=== PATIENT | female | born 1990 | race Two or more races ===

== ENCOUNTER 2019-02-11 15:55 | Emergency (ER) | payer MEDICAID ==
[~2019-02-11] VITALS: Ht 160 cm; Wt 63.5 kg
[~2019-02-11 15:55] MED LIST: CIPROFLOXACIN500 M2 ORAL; IBUPROFEN600 MG ORAL; NKM; NORCO 5-325 TA1 EACH ORAL; ZOFRAN ODT4 MG ORAL
--- NOTE | 2019-02-11 16:08 | NUR ---
ED Nurse Note: Pt came into the ER w/ complaints of dysuria x3 days. Pt is denying of discharge. Pt has a hx of UTI. Pt is complaining of 6/10 pain in the area. Non radiating. Pt is A+ O x4. AMbulatory. Skin warm to touch.
[2019-02-11 16:10] VITALS: BP 108/67
[2019-02-11] MEDS ORDERED: Phenazopyridine 200mg tab ORAL ONE (16:15)
[2019-02-11 16:31] LABS: APPEARANCE,URINE CLEAR; BILIRUBIN, URINE NEGATIVE (NEGATIVE); COLOR,URINE PALE YELLOW; GLUCOSE, URINE (UA) NEGATIVE (NEGATIVE); KETONES,URINE NEGATIVE (NEGATIVE); LEUKOCYTE ESTERASE ,URINE 1+ (NEGATIVE); NITRITE,URINE NEGATIVE (NEGATIVE); PH,URINE 8 (4.5-8.0); PROTEIN,URINE 1+ (NEGATIVE); UROBILINOGEN,URINE NORMAL MG/DL (0.0-1.0)
--- NOTE | 2019-02-11 17:04 | Emergency Room Report ---
History of Present Illness General Chief Complaint: Female Urogenital Problems Source: Patient Present Illness HPI 28-year-old female presents to the emergency department complaining of 6 out of 10 in severity dysuria along with urinary urgency 4 days. Patient denies urinary frequency or hematuria. Patient denies vaginal rash/lesions or discharge. Patient denies suspicion of she states that she just had D &C performed December 30. That she has not had any complications no fevers no chills no recent travel no constipation, diarrhea or abdominal pain/tenderness. Allergies: Coded Allergies: No Known Allergies (Unverified , 11/21/13) Patient History Past Medical History: see triage record Past Surgical History: none Pertinent Family History: none Last Menstrual Period: last week Now: No Reviewed Nursing Documentation: PMH: Agreed; PSxH: Agreed Nursing Documentation-PMH Past Medical History: No History, Except For Review of Systems All Other Systems: negative except mentioned in HPI Physical Exam Vital Signs Date Time Temp Pulse Resp B/P (MAP) Pulse Ox O2 Delivery O2 Flow Rate FiO2 02/11/19 16:01 97.7 80 20 98 Room Air 02/11/19 16:10 108/67 Sp02 EP Interpretation: reviewed, normal General Appearance: no apparent distress, alert, GCS 15, non-toxic Head: normocephalic, atraumatic Eyes: bilateral eye normal inspection, bilateral eye PERRL ENT: hearing grossly normal, normal voice Neck: full range of motion Respiratory: lungs clear, normal breath sounds, speaking full sentences Cardiovascular #1: regular rate, rhythm Gastrointestinal: normal bowel sounds, non tender, soft Genitourinary: normal inspection, no CVA tenderness Musculoskeletal: gait/station normal, normal range of motion, non-tender Neurologic: alert, oriented x3, responsive, motor strength/tone normal, sensory intact, speech normal, grossly normal Psychiatric: judgement/insight normal Skin: normal color, no rash, warm/dry, well hydrated Medical Decision Making PA Attestation Dr. Cason is my supervising Physician whom patient management has been discussed with. Diagnostic Impression: Primary Impression: uti ER Course 28-year-old female presents to the emergency department complaining of 6 out of 10 in severity dysuria along with urinary urgency 4 days. Patient denies urinary frequency or hematuria. Patient denies vaginal rash/lesions or discharge. Patient denies suspicion of she states that she just had D &C performed December 30. That she has not had any complications no fevers no chills no recent travel no constipation, diarrhea or abdominal pain/tenderness. Ddx considered but are not limited to UTi , Pyelo, STI, Stone, Cystitis Vital signs: are WNL, pt. is afebrile H&PE are most consistent with UTI ORDERS - UA labs are attached -- elevation in inflammatory markers with presence of some few bacteria will treat due to inflammatory marker elevation and clinical symptoms. ED INTERVENTIONS: -Pyridium DISCHARGE: At this time pt. is stable for d/c to home. Will provide printed patient care instructions, and any necessary prescriptions. Care plan and follow up instructions have been discussed with the patient prior to discharge. Labs Test 02/11/19 16:00 Urine Color Pale yellow Urine Appearance Clear Urine pH 8 (4.5-8.0) Urine Specific [place] 1.015 (1.005-1.035) Urine Protein 1+ (NEGATIVE) Urine Glucose (UA) Negative (NEGATIVE) Urine Ketones Negative (NEGATIVE) Urine Blood 1+ (NEGATIVE) Urine Nitrite Negative (NEGATIVE) Urine Bilirubin Negative (NEGATIVE) Urine Urobilinogen Normal MG/DL (0.0-1.0) Urine Leukocyte Esterase 1+ (NEGATIVE) Urine RBC 0-2 /HPF (0 - 2) Urine WBC 10-15 /HPF (0 - 2) Urine Squamous Epithelial Cells Few /LPF (NONE/OCC) Urine Bacteria Few /HPF (NONE) Urine HCG, Qualitative Negative (NEGATIVE) Last Vital Signs Date Time Temp Pulse Resp B/P (MAP) Pulse Ox O2 Delivery O2 Flow Rate FiO2 02/11/19 16:10 97.8 68 18 108/67 96 Room Air Status: improved Disposition: HOME, SELF-CARE Condition: Stable Referrals: [facility],REFERRING (PCP) Patient Instructions: Urinary Tract Infection Additional Instructions: Take medications as directed. Pyridium will cause your urine to change color (Red/[place]), this is a normal side effect of the medication. Follow up with a Primary Care Provider in 3-5 days, even if your symptoms have resolved. --Please review list of primary care clinics, if you do not already have a primary care provider Return sooner to ED if new symptoms occur, or current symptoms become worse. - Please note that this Emergency Department Report was dictated using Dragon construction scheduler technology software, occasionally this can lead to erroneous entry secondary to interpretation by the dictation equipment. Margo Holder February 11, 2019 17:04
[2019-02-11] MEDS ORDERED: PHENAZOPYRIDIN100 MG ORAL (17:05)
[2019-02-11] MEDS ORDERED: NITROFURANTOIN100 M2 ORAL (17:05)
[2019-02-11 17:16] VITALS: BP 105/68
--- NOTE | 2019-02-11 17:17 | NUR ---
ER DISCHARGE NOTE: Patient is cleared to be discharged per ERMD, pt is aox4, on room air, with stable vital signs. pt was given dc and prescription instructions, pt was able to verbalize understanding, pt id band removed without complications. pt is able to ambulate with steady gait. pt took all belongings.
== END 2019-02-11 17:17 | disposition home or self-care (01) ==
LOC: EMR 16:28
DX: N39.0 Urinary tract infection, site not specified (principal)
CPT/HCPCS: 81003; 81025; 87086; 99283

== ENCOUNTER 2019-04-03 10:01 | Emergency (ER) | payer MEDICAID ==
[~2019-04-03] VITALS: Ht 160 cm; Wt 65.8 kg
[~2019-04-03 10:01] MED LIST changes: +NITROFURANTOIN100 M2 ORAL; +PHENAZOPYRIDIN100 MG ORAL
--- NOTE | 2019-04-03 10:30 | NUR ---
ED Nurse Note: Patient presents to ER due sudden, stabbing chest pain @0300 today with left facial swelling with tenderness. Patient woke up due to pain. Reports no CP, N/V or SOB at this time. Patient appears anxious. Reasurred patient. Reports no travle hx or taking any meds at this time.
--- NOTE | 2019-04-03 11:10 | NUR ---
ED Nurse Note: Received patient in bed 9. pt aao x4 and ambulatory. 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 vss as documented. IV HL made in Rt AC 20 G.
--- NOTE | 2019-04-03 11:21 | NUR ---
ED Nurse Note: chest x-ray at bedside.
[2019-04-03 11:27] VITALS: BP 126/51
[2019-04-03 11:27] LABS: BASOPHILS % (AUTO) 0.7 % (0.0-2.0); EOSINOPHILS % (AUTO) 0.8 % (0.0-3.0); HEMATOCRIT 39.1 % (37.0-47.0); HEMOGLOBIN 13.2 G/DL (12.0-16.0); LYMPHOCYTES % (AUTO) 18.1 % (20.0-45.0); MEAN CORPUSCULAR VOLUME 90 FL (80-99); MONOCYTES % (AUTO) 7.4 % (1.0-10.0); PLATELET COUNT 251 K/UL (150-450); RED BLOOD COUNT 4.34 M/UL (4.20-5.40); RED CELL DISTRIBUTION WIDTH 10.8 % (11.6-14.8); WHITE BLOOD COUNT 8.1 K/UL (4.8-10.8)
[2019-04-03 11:33] LABS: ANION GAP 9 mmol/L (5-15); BLOOD UREA NITROGEN 12 mg/dL (7-18); CALCIUM 9.4 MG/DL (8.5-10.1); CARBON DIOXIDE 28 MMOL/L (21-32); CHLORIDE 106 MMOL/L (98-107); CREATININE 0.8 MG/DL (0.55-1.30); POTASSIUM 4.5 MMOL/L (3.5-5.1); SODIUM 143 MMOL/L (136-145)
[2019-04-03 11:46] LABS: ALANINE AMINOTRANSFERASE 24 U/L (12-78); ALBUMIN/GLOBULIN RATIO 1.1 (1.0-2.7); ALKALINE PHOSPHATASE 52 U/L (46-116); ASPARTATE AMINO TRANSFERASE 16 U/L (15-37); BILIRUBIN,TOTAL 0.5 MG/DL (0.2-1.0); CKMB 0.7 NG/ML (0.0-3.6); CREATINE KINASE 93 U/L (26-308)
[2019-04-03] MEDS ORDERED: Isovue-370 150ml vial INJ PRN (12:00)
--- NOTE | 2019-04-03 12:10 | NUR ---
ED Nurse Note: GARYD discuss with pt about blood lab results. pt agreed with CT scan.
--- NOTE | 2019-04-03 12:12 | Diagnostic Imaging Report ---
Indication: Cough Technique: XRAY Chest 1v Comparison: None Findings: Heart size and mediastinal contours are within normal limits for AP technique. There is no focal airspace consolidation, pneumothorax or pleural effusion. Spinal fixation hardware noted. Osseous structures demonstrate no acute abnormality. Impression: No radiographic evidence of acute cardiopulmonary disease. Specifically, no focal airspace consolidation as questioned clinically.
--- NOTE | 2019-04-03 12:35 | NUR ---
ED Nurse Note: pt signed on CT scan with contrast.
[2019-04-03 12:42] LABS: APPEARANCE,URINE SLIGHTLY CLOUDY; BILIRUBIN, URINE NEGATIVE (NEGATIVE); COLOR,URINE PALE YELLOW; GLUCOSE, URINE (UA) NEGATIVE (NEGATIVE); KETONES,URINE NEGATIVE (NEGATIVE); LEUKOCYTE ESTERASE ,URINE 2+ (NEGATIVE); NITRITE,URINE NEGATIVE (NEGATIVE); PH,URINE 5 (4.5-8.0); PROTEIN,URINE 2+ (NEGATIVE); UROBILINOGEN,URINE NORMAL MG/DL (0.0-1.0)
--- NOTE | 2019-04-03 12:45 | NUR ---
ED Nurse Note: pt went down for CT in stable condition.
--- NOTE | 2019-04-03 13:14 | NUR ---
ED Nurse Note: pt came back from CT in stable condition.
[2019-04-03 13:30] VITALS: BP 119/62
--- NOTE | 2019-04-03 13:35 | Diagnostic Imaging Report ---
Indication: Chest pain Technique: CT pulmonary angiogram performed utilizing automated exposure control with intravenous contrast. Axial, sagittal and coronal reconstructions were obtained. 3-D volumetric reconstructions were also performed. CT dose: Total DLP 609.45 mGycm; CTDI vol 18.42 mGy Comparison: None Findings: Satisfactory opacification of the pulmonary arteries was obtained. There is no pulmonary embolism. Main pulmonary artery normal in caliber. Thoracic aorta is normal in caliber. No thoracic aortic aneurysm or dissection. There is conventional branching of the aortic arch. Visualized portions of the bilateral common carotid, vertebral and subclavian arteries patent and normal in caliber. Heart size within normal limits. There is no pericardial effusion. No pathologically enlarged hilar or mediastinal lymphadenopathy. Some triangular soft tissue attenuation noted in the anterior mediastinum, likely residual thymus. Thyroid normal in appearance. There is no focal airspace consolidation. No pleural effusion or pneumothorax. Fixation hardware in the lower thoracic and lumbar spine is partially visualized. No acute osseous abnormality identified. Imaged portions of the upper abdomen demonstrate no acute abnormality. IMPRESSION: * No pulmonary embolism. * No thoracic aortic aneurysm or dissection. * No focal airspace consolidation, pleural effusion or pneumothorax. * Fixation hardware in the lower thoracic and lumbar spine is partially visualized. No acute osseous abnormality identified. The CT scanner at [facility] is accredited by the [employer] and the scans are performed using protocols designed to limit radiation exposure to as low as reasonably achievable to attain images of sufficient resolution adequate for diagnostic evaluation.
[2019-04-03] MEDS ORDERED: ARTIFICIAL TEAR15 ML LEFT EYE (13:50)
[2019-04-03] MEDS ORDERED: ACYCLOVIR400 MG ORAL (13:50)
[2019-04-03] MEDS ORDERED: PREDNISONE20 MG ORAL (13:50)
--- NOTE | 2019-04-03 13:58 | Emergency Room Report ---
History of Present Illness General Chief Complaint: Chest Pain Source: Patient Present Illness HPI Patient presents emergency department today complaining of chest pain and facial numbness. Patient states that she woke up middle night with severe chest pain on her left side associate some shortness of breath lasted for a few minutes and then resided. She states that she does not have any more chest discomfort at this time but it was fairly severe and was concerning to her so she came here for further evaluation. In addition when she woke up this morning she noticed the left side of her face felt little numb. She states that there is some decreased strength around her area of the mouth and some numbness around her area the mouth as well she denies any headache neck pain chest pain at this time denies any weakness anywhere there is no isolated focal deficits. No other complaints are noted. Symptoms noted to be severe. No other modifying factors. No other associated signs and symptoms. No other complaints were noted. Allergies: Coded Allergies: No Known Allergies (Unverified , 11/21/13) Patient History Past Medical History: none Past Surgical History: none Pertinent Family History: none Social History: Denies: smoking, alcohol use, drug use Last Menstrual Period: 03/31/2019 Reviewed Nursing Documentation: PMH: Agreed; PSxH: Agreed Nursing Documentation-PMH Past Medical History: No History, Except For Review of Systems All Other Systems: negative except mentioned in HPI Physical Exam Vital Signs Date Time Temp Pulse Resp B/P (MAP) Pulse Ox O2 Delivery O2 Flow Rate FiO2 04/03/19 10:11 97.2 85 16 133/58 (83) 97 Room Air Sp02 EP Interpretation: reviewed, normal General Appearance: normal inspection, well appearing, no apparent distress, alert Head: atraumatic Eyes: bilateral eye normal inspection ENT: normal ENT inspection, hearing grossly normal, normal voice Neck: normal inspection, full range of motion, supple, no bony tend Respiratory: normal inspection, lungs clear, normal breath sounds, no respiratory distress, no retraction, no wheezing Cardiovascular #1: regular rate, rhythm, no edema Gastrointestinal: normal inspection, normal bowel sounds, non tender, soft, no guarding, no hernia Genitourinary: no CVA tenderness Musculoskeletal: normal inspection, back normal, normal range of motion Neurologic: normal inspection, alert, responsive, speech normal Psychiatric: normal inspection, judgement/insight normal, mood/affect normal Skin: normal inspection, normal color, no rash Medical Decision Making Diagnostic Impression: Primary Impression: Lainez's palsy Additional Impression: Chest pain ER Course Patient presented to the emergency department today complaining of chest pain. Differential diagnoses include acute coronary syndrome, pulmonary embolism, pneumothorax, chest wall pain, pleurisy, pericarditis, acute anxiety reaction just to name a few. Given the severity of the patient's presentation I felt this is a highly complex patient. This patient required extensive workup. CBC , chemistry, EKG, chest x-ray, cardiac enzymes, liver profile were all obtained. 12-lead EKG performed for nontraumatic chest pain. PQRS documentation: EKG was performed. Please refer to below for interpretation. Patient's cardiac work-up was negative. D-dimer however was elevated. Because of the CT chest of the chest was performed which was noted to be negative. Given the patient had a negative work-up. Feel the patient be discharged home. She was given copies of her labs and advised to obtain outpatient follow-up for the elevated d-dimer. She was also given medications for possible Lainez's palsy. Patient is advised to follow up with primary doctor in 2-3 days and return the emergency room for any worsening symptoms and as needed. Labs Test 04/03/19 11:10 04/03/19 11:16 Urine Color Pale yellow Urine Appearance Slightly cloudy Urine pH 5 (4.5-8.0) Urine Specific [place] 1.020 (1.005-1.035) Urine Protein 2+ (NEGATIVE) Urine Glucose (UA) Negative (NEGATIVE) Urine Ketones Negative (NEGATIVE) Urine Blood 5+ (NEGATIVE) Urine Nitrite Negative (NEGATIVE) Urine Bilirubin Negative (NEGATIVE) Urine Urobilinogen Normal MG/DL (0.0-1.0) Urine Leukocyte Esterase 2+ (NEGATIVE) Urine RBC 30-40 /HPF (0 - 2) Urine WBC 5-10 /HPF (0 - 2) Urine Squamous Epithelial Cells Few /LPF (NONE/OCC) Urine Bacteria Few /HPF (NONE) Urine HCG, Qualitative Negative (NEGATIVE) White Blood Count 8.1 K/UL (4.8-10.8) Red Blood Count 4.34 M/UL (4.20-5.40) Hemoglobin 13.2 G/DL (12.0-16.0) Hematocrit 39.1 % (37.0-47.0) Mean Corpuscular Volume 90 FL (80-99) Mean Corpuscular Hemoglobin 30.3 PG (27.0-31.0) Mean Corpuscular Hemoglobin Concent 33.6 G/DL (32.0-36.0) Red Cell Distribution Width 10.8 % (11.6-14.8) Platelet Count 251 K/UL (150-450) Mean Platelet Volume 6.8 FL (6.5-10.1) Neutrophils (%) (Auto) 73.0 % (45.0-75.0) Lymphocytes (%) (Auto) 18.1 % (20.0-45.0) Monocytes (%) (Auto) 7.4 % (1.0-10.0) Eosinophils (%) (Auto) 0.8 % (0.0-3.0) Basophils (%) (Auto) 0.7 % (0.0-2.0) D-Dimer 2.27 mg/L FEU (0.00-0.49) Sodium Level 143 MMOL/L (136-145) Potassium Level 4.5 MMOL/L (3.5-5.1) Chloride Level 106 MMOL/L (98-107) Carbon Dioxide Level 28 MMOL/L (21-32) Anion Gap 9 mmol/L (5-15) Blood Urea Nitrogen 12 mg/dL (7-18) Creatinine 0.8 MG/DL (0.55-1.30) Estimat Glomerular Filtration Rate > 60 mL/min (>60) Glucose Level 101 MG/DL (74-106) Calcium Level 9.4 MG/DL (8.5-10.1) Total Bilirubin 0.5 MG/DL (0.2-1.0) Aspartate Amino Transf (AST/SGOT) 16 U/L (15-37) Alanine Aminotransferase (ALT/SGPT) 24 U/L (12-78) Alkaline Phosphatase 52 U/L (46-116) Total Creatine Kinase 93 U/L (26-308) Creatine Kinase MB 0.7 NG/ML (0.0-3.6) Creatine Kinase MB Relative Index 0.7 Troponin I 0.000 ng/mL (0.000-0.056) Total Protein 7.5 G/DL (6.4-8.2) Albumin 4.0 G/DL (3.4-5.0) Globulin 3.5 g/dL Albumin/Globulin Ratio 1.1 (1.0-2.7) EKG Diagnostic Results Rate: normal Rhythm: NSR ST Segments: no acute changes Rhythm Strip Diag. Results EP Interpretation: yes Rate: 81 Rhythm: NSR, no PVC's, no ectopy Chest X-Ray Diagnostic Results Chest X-Ray Diagnostic Results : Chest X-Ray Ordered: Yes # of Views/Limited/Complete: 1 View Indication: Shortness of Breath EP Interpretation: No Impression: No acute disease CT/MRI/US Diagnostic Results CT/MRI/US Diagnostic Results : Imaging Test Ordered: CT chest: Rule out PE negative per radiology Last Vital Signs Date Time Temp Pulse Resp B/P (MAP) Pulse Ox O2 Delivery O2 Flow Rate FiO2 04/03/19 13:30 98.0 89 18 119/62 96 Room Air Status: improved Disposition: HOME, SELF-CARE Condition: Stable Scripts Dextran 70/Hypromellose (ARTIFICIAL TEARS EYE DROPS*) 15 Ml Drops 1 DROP LEFT EYE EVERY 2 HOURS for dry eyes, #15 ML 0 Refills Prov: Jan Sarmiento MD 04/03/19 Acyclovir* (ACYCLOVIR*) 400 Mg Tablet 400 MG ORAL FIVE TIMES A DAY for 7 Days, TAB Prov: Jan Sarmiento MD 04/03/19 Prednisone* (PREDNISONE*) 20 Mg Tablet 40 MG ORAL DAILY, #10 TAB Prov: Jan Sarmiento MD 04/03/19 Patient Instructions: Nonspecific Chest Pain, Lainez Palsy Jan Sarmiento MD Apr 03, 2019 13:58
[2019-04-03 14:40] VITALS: BP 126/61
--- NOTE | 2019-04-03 14:45 | NUR ---
ER DISCHARGE NOTE: Patient is cleared to be discharged per ERMD, pt is aox4, on room air, with stable vital signs. pt was given dc and prescription instructions, pt was able to verbalize understanding, pt id band and iv site removed without complications. pt is able to ambulate with steady gait. pt took all belongings.
== END 2019-04-03 14:40 | disposition home or self-care (01) ==
LOC: EMR 10:55
DX: R07.9 Chest pain, unspecified (principal); G51.0 Bell's palsy
CPT/HCPCS: 36415; 71045; 71275; 80053; 81003; 81025; 82550; 82553; 84484; 85025; 85379; 93005; 99284; Q9967

== ENCOUNTER 2019-06-20 19:27 | Emergency (ER) | payer MEDICAID ==
[~2019-06-20] VITALS: Ht 160 cm; Wt 61.2 kg
[~2019-06-20 19:27] MED LIST changes: +ACYCLOVIR400 MG ORAL; +ARTIFICIAL TEAR15 ML LEFT EYE; +PREDNISONE20 MG ORAL
--- NOTE | 2019-06-20 19:39 | NUR ---
ED Nurse Note: Patient walked in to ER due to lower abd pain x 3 days ago. PT stated she has a positive test yesterday. Denies problem with urination. Has hx of miscarriage 3 months ago. Alert and oriented, verbally responsive. Breathing even and unlabored. Afebrile. VSS.
[2019-06-20 19:46] VITALS: BP 127/78
[2019-06-20 19:55] LABS: APPEARANCE,URINE CLEAR; BILIRUBIN, URINE NEGATIVE (NEGATIVE); COLOR,URINE PALE YELLOW; GLUCOSE, URINE (UA) NEGATIVE (NEGATIVE); KETONES,URINE NEGATIVE (NEGATIVE); LEUKOCYTE ESTERASE ,URINE 3+ (NEGATIVE); NITRITE,URINE NEGATIVE (NEGATIVE); PH,URINE 5 (4.5-8.0); PROTEIN,URINE NEGATIVE (NEGATIVE); UROBILINOGEN,URINE NORMAL MG/DL (0.0-1.0)
--- NOTE | 2019-06-20 20:20 | NUR ---
ED Nurse Note: US done at bedside.
[2019-06-20 20:21] LABS: BASOPHILS % (AUTO) 1.3 % (0.0-2.0); EOSINOPHILS % (AUTO) 1.1 % (0.0-3.0); HEMATOCRIT 37.3 % (37.0-47.0); HEMOGLOBIN 12.6 G/DL (12.0-16.0); LYMPHOCYTES % (AUTO) 28.2 % (20.0-45.0); MEAN CORPUSCULAR VOLUME 89 FL (80-99); MONOCYTES % (AUTO) 9.2 % (1.0-10.0); NEUTROPHILS % (AUTO) 60.2 % (45.0-75.0); PLATELET COUNT 234 K/UL (150-450); RED BLOOD COUNT 4.17 M/UL (4.20-5.40); RED CELL DISTRIBUTION WIDTH 11.4 % (11.6-14.8); WHITE BLOOD COUNT 7.9 K/UL (4.8-10.8)
[2019-06-20 20:43] LABS: ANION GAP 10 mmol/L (5-15); BLOOD UREA NITROGEN 11 mg/dL (7-18); CALCIUM 8.7 MG/DL (8.5-10.1); CARBON DIOXIDE 26 MMOL/L (21-32); CHLORIDE 108 MMOL/L (98-107); CREATININE 0.8 MG/DL (0.55-1.30); SODIUM 143 MMOL/L (136-145)
[2019-06-20 20:48] LABS: ALANINE AMINOTRANSFERASE 14 U/L (12-78); ALBUMIN 4.1 G/DL (3.4-5.0); ALBUMIN/GLOBULIN RATIO 1.1 (1.0-2.7); ALKALINE PHOSPHATASE 54 U/L (46-116); ASPARTATE AMINO TRANSFERASE 6 U/L (15-37); BILIRUBIN,TOTAL 0.5 MG/DL (0.2-1.0)
[2019-06-20] MEDS ORDERED: NITROFURANTOIN100 M2 ORAL (20:59)
--- NOTE | 2019-06-20 20:59 | Emergency Room Report ---
History of Present Illness General Chief Complaint: Abdominal Pain Source: Medical Record (Katie Herrera) Present Illness HPI 28-year-old female with no significant past medical history here complaining of suprapubic pain and cramping for the past few days. Patient reports that she did 2 tests at home yesterday and both turn positive. Denies any vaginal bleeding or cramping. Denies nausea vomiting, dizziness and headache. Denies shortness of breath, syncope, palpitations chest pain. Patient has been multiple times in the past. Also reports that she has some vaginal discharge however reports that she was just tested for chlamydia and gonorrhea 2 weeks ago and that was negative. Patient reports that she has been the same partner and her partner was also tested 2 weeks ago for chlamydia and gonorrhea and was tested negative. Patient denies sexual activity with any other partners. Denies diarrhea and constipation. Denies fever and chills. Last menstrual period was May 18, 2019. Also complains of urinary frequency however denies hematuria and dysuria (Katie Herrera) Allergies: Coded Allergies: No Known Allergies (Unverified , 11/21/13) Patient History Past Medical History: see triage record Past Surgical History: unable to obtain Pertinent Family History: none Last Menstrual Period: 05/21/19 Now: Yes - +PREG TEST YESTERDAY : 7 Para: 4 Immunizations: UTD Reviewed Nursing Documentation: PMH: Agreed; PSxH: Agreed (Katie Herrera) Review of Systems All Other Systems: negative except mentioned in HPI (Katie Herrera) Physical Exam Vital Signs Date Time Temp Pulse Resp B/P (MAP) Pulse Ox O2 Delivery O2 Flow Rate FiO2 06/20/19 19:31 98.1 91 18 127/78 (94) 99 Room Air Sp02 EP Interpretation: reviewed, normal General Appearance: no apparent distress, alert, GCS 15, non-toxic Head: normocephalic, atraumatic Eyes: bilateral eye normal inspection, bilateral eye PERRL ENT: hearing grossly normal, normal pharynx, no angioedema, normal voice Neck: full range of motion, supple/symm/no masses Respiratory: chest non-tender, lungs clear, normal breath sounds, no wheezing, speaking full sentences Cardiovascular #1: normal inspection, normal peripheral pulses, regular rate, rhythm, no edema, no gallop, no murmur Gastrointestinal: normal bowel sounds, non tender, soft, non-distended, no guarding, no rebound Rectal: deferred Genitourinary: normal inspection, no CVA tenderness Musculoskeletal: back normal, gait/station normal, normal range of motion, non- tender, no calf tenderness Neurologic: alert, oriented x3, responsive, motor strength/tone normal, sensory intact, speech normal Psychiatric: judgement/insight normal, memory normal, mood/affect normal, no suicidal/homicidal ideation Skin: no rash Lymphatic: no adenopathy (Katie Herrera) Medical Decision Making PA Attestation All diagnoses and treatment plans were reviewed and discussed with my supervising physician Dr. Cason (Katie Herrera) Diagnostic Impression: Primary Impression: Additional Impressions: Fibroid, uterine Ovarian cyst uti ER Course 28-year-old female with no significant past medical history here complaining of suprapubic pain and cramping for the past few days. Patient reports that she did 2 tests at home yesterday and both turn positive. Denies any vaginal bleeding or cramping. Denies nausea vomiting, dizziness and headache. Denies shortness of breath, syncope, palpitations chest pain. Patient has been multiple times in the past. Also reports that she has some vaginal discharge however reports that she was just tested for chlamydia and gonorrhea 2 weeks ago and that was negative. Patient reports that she has been the same partner and her partner was also tested 2 weeks ago for chlamydia and gonorrhea and was tested negative. Patient denies sexual activity with any other partners. Denies diarrhea and constipation. Denies fever and chills. Last menstrual period was May 18, 2019. Also complains of urinary frequency however denies hematuria and dysuria Ddx considered but are not limited to: UTI, intrauterine complicated, uncomplicated intrauterine , fibroids, ovarian cyst Vital signs: are WNL, pt. is afebrile H&PE are most consistent with: Positive test via urine however no intrauterine noted, ovarian cyst, uterine fibroids, UTI ORDERS: UA, urine test, type and screen, CBC, CMP, beta-hCG,, OB ultrasound, Macrobid, ED INTERVENTIONS: None required at this time. DISCHARGE: At this time pt. is stable for d/c to home. Will provide printed patient care instructions, and any necessary prescriptions. Care plan and follow up instructions have been discussed with the patient prior to discharge. Follow-up with your [facility] take medication as directed if worsening symptoms return to the emergency room (Katie Herrera) Laboratory Tests Test 06/20/19 19:43 06/20/19 20:00 Urine Color Pale yellow Urine Appearance Clear Urine pH 5 (4.5-8.0) Urine Specific [place] 1.025 (1.005-1.035) Urine Protein Negative (NEGATIVE) Urine Glucose (UA) Negative (NEGATIVE) Urine Ketones Negative (NEGATIVE) Urine Blood Negative (NEGATIVE) Urine Nitrite Negative (NEGATIVE) Urine Bilirubin Negative (NEGATIVE) Urine Urobilinogen Normal MG/DL (0.0-1.0) Urine Leukocyte Esterase 3+ (NEGATIVE) H Urine RBC 0 /HPF (0 - 2) Urine WBC 5-10 /HPF (0 - 2) H Urine Squamous Epithelial Cells Moderate /LPF (NONE/OCC) H Urine Bacteria Few /HPF (NONE) Urine HCG, Qualitative Positive (NEGATIVE) White Blood Count 7.9 K/UL (4.8-10.8) Red Blood Count 4.17 M/UL (4.20-5.40) L Hemoglobin 12.6 G/DL (12.0-16.0) Hematocrit 37.3 % (37.0-47.0) Mean Corpuscular Volume 89 FL (80-99) Mean Corpuscular Hemoglobin 30.3 PG (27.0-31.0) Mean Corpuscular Hemoglobin Concent 33.9 G/DL (32.0-36.0) Red Cell Distribution Width 11.4 % (11.6-14.8) L Platelet Count 234 K/UL (150-450) Mean Platelet Volume 6.9 FL (6.5-10.1) Neutrophils (%) (Auto) 60.2 % (45.0-75.0) Lymphocytes (%) (Auto) 28.2 % (20.0-45.0) Monocytes (%) (Auto) 9.2 % (1.0-10.0) Eosinophils (%) (Auto) 1.1 % (0.0-3.0) Basophils (%) (Auto) 1.3 % (0.0-2.0) Sodium Level 143 MMOL/L (136-145) Potassium Level 4.0 MMOL/L (3.5-5.1) Chloride Level 108 MMOL/L (98-107) H Carbon Dioxide Level 26 MMOL/L (21-32) Anion Gap 10 mmol/L (5-15) Blood Urea Nitrogen 11 mg/dL (7-18) Creatinine 0.8 MG/DL (0.55-1.30) Estimate Glomerular Filtration Rate > 60 mL/min (>60) Glucose Level 105 MG/DL (74-106) Calcium Level 8.7 MG/DL (8.5-10.1) Total Bilirubin 0.5 MG/DL (0.2-1.0) Aspartate Amino Transferase (AST) 6 U/L (15-37) L Alanine Aminotransferase (ALT) 14 U/L (12-78) Alkaline Phosphatase 54 U/L (46-116) Total Protein 7.7 G/DL (6.4-8.2) Albumin 4.1 G/DL (3.4-5.0) Globulin 3.6 g/dL Albumin/Globulin Ratio 1.1 (1.0-2.7) Human Chorionic Gonadotropin, Quant 178 mIU/mL (1-6) H (Rashi Cason MD) CT/MRI/US Diagnostic Results CT/MRI/US Diagnostic Results : Imaging Test Ordered: OB US Impression Uterine fibroids noted ovarian cyst noted no intrauterine noted as this is too early to be visualized on ultrasound It shows the uterus measures 9.7 x 5.4 x 5.3 cm. The cervix measures 3.3 cm long. The endometrial stripe measures 1.4 cm. No intrauterine gestational sac is identified. The right ovary measures 5.4 x 5.0 x 4.5 cm and is dominated by a dominant right ovarian follicle measuring 5.3 cm. Left ovary not well seen, obscured by bowel gas. No adnexal masses seen. Trace pelvic free fluid. IMPRESSION: No intra-or extra uterine intrauterine gestational sac is identified. This could be too early based on dates. Recommend serial correlation with beta-hCG measurements and short-term follow-up pelvic ultrasound. (Katie Herrera) Last Vital Signs Date Time Temp Pulse Resp B/P (MAP) Pulse Ox O2 Delivery O2 Flow Rate FiO2 06/20/19 19:46 89 18 Room Air 06/20/19 19:46 98.1 127/78 99 (Katie Herrera) Disposition: HOME, SELF-CARE Condition: Stable Scripts Pnv Cmb#21/Iron/Folic Acid ( COMPLETE CAPLET) 1 Each Tablet 1 EACH PO DAILY, #30 TAB Prov: Katie Herrera 06/20/19 Nitrofurantoin Monohyd/M-Cryst* (MACROBID 100 MG*) 100 Mg Capsule 100 MG ORAL EVERY 12 HOURS for 7 Days, #14 CAP Prov: Katie Herrera 06/20/19 Referrals: [facility],REFERRING (PCP) Patient Instructions: Abdominal Pain During , Ovarian Cyst, Urinary Tract Infection, [id number], Uterine Fibroids, [id number] Additional Instructions: Take medication as directed follow-up with your primary care provider and OB/ TAILER IN if worsening symptoms return to the emergency room Katie Herrera Jun 20, 2019 20:59 Rashi Cason MD Jun 21, 2019 05:37
[2019-06-20] MEDS ORDERED: PRENATAL COMPL1 EAC1 PO (21:23)
--- NOTE | 2019-06-20 21:32 | Diagnostic Imaging Report ---
EXAM: US First Trimester, Transabdominal CLINICAL HISTORY: PAIN TECHNIQUE: Real-time transabdominal obstetrical ultrasound of the maternal pelvis and a first trimester with image documentation. COMPARISON: None available FINDINGS: Based on LMP of May 21, 2019, gestational age by dates is 4 weeks and 2 days with estimated delivery date of February 25, 2020. Transabdominal pelvic ultrasound only was performed. It shows the uterus measures 9.7 x 5.4 x 5.3 cm. The cervix measures 3.3 cm long. The endometrial stripe measures 1.4 cm. No intrauterine gestational sac is identified. The right ovary measures 5.4 x 5.0 x 4.5 cm and is dominated by a dominant right ovarian follicle measuring 5.3 cm. Left ovary not well seen, obscured by bowel gas. No adnexal masses seen. Trace pelvic free fluid. IMPRESSION: No intra-or extra uterine intrauterine gestational sac is identified. This could be too early based on dates. Recommend serial correlation with beta-hCG measurements and short-term follow-up pelvic ultrasound.
[2019-06-20 21:33] VITALS: BP 127/78
--- NOTE | 2019-06-20 21:33 | NUR ---
ED Nurse Note: Pt cleared by health care Provider for discharge. DC instructions/prescription was given and explained to pt and verbalized understanding of teachings. All medical deviecs such as ID band removed. Pt is AAO x4, ambulatory and left with all personal belongings.
== END 2019-06-20 21:33 | disposition home or self-care (01) ==
LOC: EMR 20:09
DX: O34.81 Maternal care for other abnormalities of pelvic organs, first trimester (principal); N83.201 Unspecified ovarian cyst, right side; O23.41 Unspecified infection of urinary tract in pregnancy, first trimester; O34.11 Maternal care for benign tumor of corpus uteri, first trimester; Z3A.00 Weeks of gestation of pregnancy not specified
CPT/HCPCS: 36415; 76801; 76830; 80053; 81003; 81025; 84702; 85025; 86850; 86900; 86901; Z7502; 99284